=== PATIENT | female | born 1930 | race Caucasian/White ===

== ENCOUNTER 2016-11-05 21:25 | Emergency (ER) | payer OTHER ==
[~2016-11-05] VITALS: Ht 160 cm; Wt 67.1 kg
[~2016-11-05 21:25] MED LIST: ALPRAZOLAM0.5 MG PO; AMOXICILLIN500 MG PO; AUGMENTIN 875875 MG PO; BACTRIM DS 8001 TAB PO; HYDROCODONE/ACE1 TA1 PO; LEVOTHYROXIN0.075 M1 PO; LOSARTAN POTASS50 MG PO; MEVACOR20 MG PO; TRAMADOL50 MG PO; TYLENOL ARTHRI650 MG PO; VOLTAREN 25MG T25 MG PO; XANAX0.25 MG PO
[2016-11-05 21:54] LABS: ABSOLUTE BASOPHIL COUNT 0 /CUMM (0.0-0.2); ABSOLUTE EOSINOPHIL COUNT 0.1 /CUMM (0.0-0.7); ABSOLUTE GRANULOCYTE CT 4.3 /CUMM (1.4-6.5); ABSOLUTE LYMPH COUNT 0.7 /CUMM (1.2-3.4); ABSOLUTE MONOCYTE COUNT 0.7 /CUMM (0.10-0.60); BASOPHIL % 0 % (0.0-2.0); EOSINOPHIL % 2.2 % (0-5); GRANULOCYTE % 73.6 % (42.2-75.2); HEMATOCRIT 38.2 % (37-47); MEAN CORPUSCULAR HGB 31.2 PG (27.0-31.0); MEAN CORPUSCULAR HGB CONC 33.8 G/DL (33.0-37.0); MEAN CORPUSCULAR VOLUME 92.2 FL (81.0-99.0); MEAN PLATELET VOLUME 6.4 FL (7.4-10.4); PLATELET COUNT 258 /CUMM (130-400); RBC DISTRIBUTION WIDTH 13.1 % (11.5-14.5); RED BLOOD CELL CT 4.15 /CUMM (4.20-5.40); WHITE BLOOD CELL COUNT 5.9 /CUMM (4.8-10.8)
--- NOTE | 2016-11-05 22:11 | ED GI/GU/ABDOMINAL COMPLAINT ---
History of Present Illness General Chief Complaint: Chest Pain Stated Complaint: chest pain since last night Source: patient, family, old records Exam Limitations: no limitations Vital Signs & Intake/Output Vital Signs & Intake/Output Vital Signs Date Time Temp Pulse Resp B/P B/P Pulse O2 O2 Flow FiO2 Mean Ox Delivery Rate 11/05 2138 98.6 79 18 164/74 97 Room Air Allergies Coded Allergies: codeine (Intermediate, UPSET STOMACH 11/05/16) tramadol (Intermediate, PT REPORTS N/V 11/05/16) Reconcile Medications Alprazolam (Xanax) 0.25 MG TAB 1 TAB PO DAILY PRN ANXIETY (Reported) Amoxicillin/Clavulanate Potass (Amox-Clav 875-125 MG Tablet) 875 MG TAB 1 TAB PO Q12 WOUND INFECTION PLEASE TAKE THE LAST DOSE ON 01/24 HYDROCODONE/ACETAMINOPHEN (Hydrocodon-Acetaminophen 5-325) 5 MG-325 MG TABLET 1 TAB PO Q8P PRN PAIN Levothyroxine Sodium 75 MCG TABLET 1 TAB PO DAILY AC HYPOTHYROIDISM (Reported ) Losartan Potassium 50 MG TABLET 1 TAB PO QPM HTN (Reported) Lovastatin (Mevacor) 20 MG TABLET 0.5 TAB PO QPM CHOLESTEROL (Reported) Triage Note: TRIAGE: PT REPORTS CONSTANT MID UPPER ABDOMINAL PAIN STARTING YESTERDAY WITH CONSTANT BELCHING. PAIN RADIATES INTO BACK AND WORSE WITH DEEP INSPIRATION. DENIES ACTIVE CP. SLIGHT SOB, TROUBLE CATCHING BREATH. O2 SAT 97% RA. DENIES WORSENING PAIN WITH PALPATION OF ABDOMEN. HX DIVERTICULOSIS. DENIES HX DVT OR PAIN/SWELLING TO EXTREMITIES. REPORTS TRAVELING BY CAR FROM [place] ONE WEEK AGO. DENIES BLOOD THINNERS. TOOK TWO [facility]SA TWO HOURS AGO. ABLE TO SPEAK IN FULL SENTENCES. DENIES FEVERS, AFEBRILE IN TRIAGE. LAST BM YESTERDAY AND NORMAL. PT IS A VERY POOR HISTORIAN FOR MEDICAL HX. PT 3 PACK A WEEK SMOKER, QUIT 40 YEARS AGO. IV ESTABLISHED IN TRIAGE, BLOOD DRAWN AND SENT (BLUE, SST X2, LAV, FORTE) Triage Nurses Notes Reviewed? yes ? n Is pt currently ? No HPI: Patient was awoken during the night with a sharp stabbing pain in her epigastric area. The pain continued throughout the day and began to migrate to her back as well. The pain increases with inspiration. Patient states that she has been feeling very anxious lately. Patient states she occasionally feels nauseous but not currently. Patient has had some anorexia because of the pain however was able to eat today. She states that she has been burping more than normal. There has been no vomiting or diarrhea. At its worse the pain is 4 out of 10. Patient states it does not feel anything like it did prior to having her gallbladder out. Past History Travel History Traveled to [place] past 21 day No Medical History Any Pertinent Medical History? see below for history Cardiovascular: hypertension, hyperlipidemia Psychiatric: anxiety Endocrine: hypothyroidism History of MRSA: No History of VRE: No History of CDIFF: No Pneumonia Vaccine: 02/12/07 Influenza Vaccine: 02/12/13 Tetanus Vaccine: 01/10/14 Surgical History Surgical History: appendectomy, cholecystectomy, hysterectomy Psychosocial History Who do you live with Daughter What is your primary language Turkish Tobacco Use: Quit >30 days ago ETOH Use: denies use Illicit Drug Use: denies illicit drug use Family History Family History, If Any: Relation not specified for: *No pertinent family history Hx Contributory? No Review of Systems Review of Systems Constitutional: Reports: no symptoms. EENTM: Reports: no symptoms. Respiratory: Reports: no symptoms. Cardiovascular: Reports: no symptoms. GI: Reports: see HPI, abdominal pain. Genitourinary: Reports: no symptoms. Musculoskeletal: Reports: see HPI, back pain. Skin: Reports: no symptoms. Neurological/Psychological: Reports: no symptoms. Hematologic/Endocrine: Reports: no symptoms. Immunologic/Allergic: Reports: no symptoms. All Other Systems: Reviewed and Negative Physical Exam Physical Exam General Appearance: well developed/nourished, alert, awake, anxious, mild distress Head: atraumatic, normal appearance Eyes: Bilateral: PERRL, EOMI. Ears, Nose, Throat, Mouth: hearing grossly normal, moist mucous membrane Neck: normal inspection, supple, full range of motion Respiratory: normal breath sounds, chest non-tender, no respiratory distress, lungs clear Cardiovascular: regular rate/rhythm, normal peripheral pulses Gastrointestinal: normal bowel sounds, soft, non-tender, no organomegaly, no rebound or guarding Back: normal inspection, normal range of motion, no CVA tenderness Extremities: normal range of motion Neurologic/Psych: no motor/sensory deficits, awake, alert, oriented x 3, normal gait, normal mood/affect Skin: intact, normal color, warm/dry Core Measures ACS in differential dx? No Severe Sepsis Present: No Septic Shock Present: No Progress Differential Diagnosis: diverticulitis, gastritis, hepatitis, ischemic bowel, inflamm bowel dis, peptic ulcer, PUD/GERD Plan of Care: Orders Procedure Date/time Status TROPONIN LEVEL 11/05 2142 Complete LIPASE 11/05 2142 Complete D-DIMER 11/05 2142 Complete COMPREHENSIVE METABOLIC PANEL 11/05 2142 Complete CBC WITHOUT DIFFERENTIAL 11/05 2142 Complete AMYLASE 11/05 2142 Complete EKG 11/05 2126 Active Laboratory Tests 11/05/162147: Anion Gap 12, Estimated GFR 60, BUN/Creatinine Ratio 20.0, Glucose 94, Calcium 10.1, Total Bilirubin 0.5, AST 37 H, ALT 41, Alkaline Phosphatase 70, Troponin I < 0.01, Total Protein 7.6, Albumin 4.5, Globulin 3.1, Albumin/Globulin Ratio 1.5, Amylase 67, Lipase 309 H, D-Dimer High Sensitivty < 200, CBC w Diff NO MAN DIFF REQ, RBC 4.15 L, MCV 92.2, MCH 31.2 H, RDW 13.1, MPV 6.4 L, Gran % 73.6, Lymphocytes % 11.4 L, Monocytes % 12.8 H, Eosinophils % 2.2, Basophils % 0 L, Absolute Granulocytes 4.3, Absolute Lymphocytes 0.7 L, Absolute Monocytes 0.7 H, Absolute Eosinophils 0.1, Absolute Basophils 0, PUBS MCHC 33.8 Diagnostic Imaging: Viewed by Me: CT Scan. Discussed w/RAD: CT Scan. Radiology Impression: PATIENT: ABIGAIL RICHARDS PRESENT AGE: 86 PATIENT ACCOUNT NO: [id number] : 32 LOCATION: [facility] [place] ORDERING PHYSICIAN: FALGUNI FISCHER MD SERVICE DATE: 11/05/16 EXAM TYPE: CAT - CT ABD & PELVIS W IV CONTRAST EXAMINATION: CT ABDOMEN AND PELVIS WITH CONTRAST CLINICAL INFORMATION: Right upper quadrant pain, epigastric pain COMPARISON: None TECHNIQUE: Multidetector volumetric imaging was performed of the abdomen and pelvis before and after the IV administration of 95 mL of Optiray 320 intravenous contrast. Sagittal and coronal reformatted images were obtained on the technologist's workstation. DLP: 345.9 mGy-cm FINDINGS: LUNG BASES: There is a peripheral, tree-in-bud opacity, within the right middle lobe. Otherwise, the lung bases appear clear. No effusion. LIVER, GALLBLADDER, AND BILIARY TREE: The liver enhances homogeneously. There are innumerable hypodense lesions scattered throughout the liver. The larger of these lesions measure simple fluid on assessment of the Hounsfield units. There are scattered subcentimeter lesions which are too small to characterize but statistically likely represent cysts. There is no intrahepatic or later dilatation. Coarse calcification is noted within the right lobe of the liver. The gallbladder is surgically absent. The common bile duct is within normal caliber range. PANCREAS : Unremarkable. SPLEEN: Unremarkable. ADRENAL GLANDS: Unremarkable. KIDNEYS AND URETERS: The kidneys are normal in size, shape, and attenuation. No hydronephrosis, hydroureter, or calculi seen. No perinephric stranding. BLADDER: Unremarkable. GASTROINTESTINAL TRACT: There are no dilated loops of small or large bowel. There are scattered colonic diverticula most localized to the sigmoid colon. No CT evidence for acute diverticulitis. There is no free air or free fluid within the abdomen. ABDOMINAL WALL: No significant hernia is appreciated. LYMPH NODES: Normal. VASCULAR: Mild atherosclerotic calcific disease involving the abdominal aorta and its branches. PELVIC VISCERA: The uterus is surgically absent. There are no adnexal lesions. OSSEOUS STRUCTURES: There are mild multilevel degenerative changes particularly of the lower lumbar spine. There is a small amount of retrolisthesis measuring 0.2 cm at the L4-L5 level. A small disc bulge is also noted posteriorly at this level. There is vacuum disc phenomena at the L5-S1 level with small associated disc bulge. IMPRESSION: 1. Status post cholecystectomy. No significant intrahepatic or extrahepatic biliary dilatation. 2. Innumerable hypodense lesions scattered throughout the liver most likely representing cysts. Some of these are too small to characterize. If there are persistent epigastric symptoms, consider targeted right upper quadrant ultrasound to further assess patient's symptoms and liver lesions. 3. Diverticulosis without CT evidence for acute diverticulitis. 4. Small tree-in-bud opacity in the right middle lobe which may represent an infectious process. DICTATED BY: CONCETTA MAYBERRY MD DATE/TIME DICTATED:11/05/162256 MANUFACTURING ASSOCIATE:LINDEN DATE/TIME TRANSCRIBED:11/05/162256 CONFIDENTIAL, DO NOT COPY WITHOUT APPROPRIATE AUTHORIZATION. <Electronically signed in Other Vendor System> SIGNED BY: CONCETTA MAYBERRY MD 11/05/16 4076 Initial ED EKG: RBBB, nonspecific ST T wave chg Comments: states that he has known her for 64 years and every time she gets anxious and very stressed she has similar symptoms. He states that she has been worked up multiple times by her doctor in [place] for similar complaints. No relief from IV Toradol or GI cocktail. Lab results and CAT scan results have been discussed with the patient and her . Patient states that she feels a lot more comfortable knowing that the CAT scan and lab work is normal. Departure Departure Disposition: HOME OR SELF CARE Condition: Stable Clinical Impression Primary Impression: Upper abdominal pain, unspecified Referrals: PATIENT HAS NO PRIMARY CARE DR (PCP/Family) Additional Instructions: RETURN FOR ANY CONCERNS Departure Forms: Customer Survey General Discharge Information Prescriptions: Current Visit Scripts Lorazepam (Ativan) 1 TAB PO BID PRN ANXIETY #20 TAB
--- NOTE | 2016-11-05 23:09 | CT SCAN REPORT ---
EXAMINATION: CT ABDOMEN AND PELVIS WITH CONTRAST CLINICAL INFORMATION: Right upper quadrant pain, epigastric pain COMPARISON: None TECHNIQUE: Multidetector volumetric imaging was performed of the abdomen and pelvis before and after the IV administration of 95 mL of Optiray 320 intravenous contrast. Sagittal and coronal reformatted images were obtained on the technologist's workstation. DLP: 345.9 mGy-cm FINDINGS: LUNG BASES: There is a peripheral, tree-in-bud opacity, within the right middle lobe. Otherwise, the lung bases appear clear. No effusion. LIVER, GALLBLADDER, AND BILIARY TREE: The liver enhances homogeneously. There are innumerable hypodense lesions scattered throughout the liver. The larger of these lesions measure simple fluid on assessment of the Hounsfield units. There are scattered subcentimeter lesions which are too small to characterize but statistically likely represent cysts. There is no intrahepatic or later dilatation. Coarse calcification is noted within the right lobe of the liver. The gallbladder is surgically absent. The common bile duct is within normal caliber range. PANCREAS: Unremarkable. SPLEEN: Unremarkable. ADRENAL GLANDS: Unremarkable. KIDNEYS AND URETERS: The kidneys are normal in size, shape, and attenuation. No hydronephrosis, hydroureter, or calculi seen. No perinephric stranding. BLADDER: Unremarkable. GASTROINTESTINAL TRACT: There are no dilated loops of small or large bowel. There are scattered colonic diverticula most localized to the sigmoid colon. No CT evidence for acute diverticulitis. There is no free air or free fluid within the abdomen. ABDOMINAL WALL: No significant hernia is appreciated. LYMPH NODES: Normal. VASCULAR: Mild atherosclerotic calcific disease involving the abdominal aorta and its branches. PELVIC VISCERA: The uterus is surgically absent. There are no adnexal lesions. OSSEOUS STRUCTURES: There are mild multilevel degenerative changes particularly of the lower lumbar spine. There is a small amount of retrolisthesis measuring 0.2 cm at the L4-L5 level. A small disc bulge is also noted posteriorly at this level. There is vacuum disc phenomena at the L5-S1 level with small associated disc bulge. IMPRESSION: 1. Status post cholecystectomy. No significant intrahepatic or extrahepatic biliary dilatation. 2. Innumerable hypodense lesions scattered throughout the liver most likely representing cysts. Some of these are too small to characterize. If there are persistent epigastric symptoms, consider targeted right upper quadrant ultrasound to further assess patient's symptoms and liver lesions. 3. Diverticulosis without CT evidence for acute diverticulitis. 4. Small tree-in-bud opacity in the right middle lobe which may represent an infectious process.
[2016-11-05] MEDS ORDERED: ATIVAN0.5 M1 PO (23:31)
[2016-11-05 23:57] VITALS: BP 145/67
[2016-11-05] MEDS ORDERED: HYDROCHLOROTH12.5 M2 PO (23:58)
== END 2016-11-05 23:59 ==
LOC: ERH 21:25
PROVIDERS: Emergency Medicine
DX: R10.13 Epigastric pain (principal)
CPT/HCPCS: 74177; 93005; 93010; 96374; J1885